=== PATIENT | male | born 1955 | race Caucasian/White ===

== ENCOUNTER 2024-02-06 15:07 | Emergency (ER) | payer MEDICARE ==
[~2024-02-06] VITALS: Wt 93.0 kg
[2024-02-06] MEDS ORDERED: LIPITOR20 MG PO (15:49)
[2024-02-06] MEDS ORDERED: TYLOPHEN500 M2 PO (15:49)
[2024-02-06 16:00] LABS: BASO % 0.5 % (0.0-1.0); EOS # 0.3 10*3/uL (0.0-0.4); EOS % 3.1 % (1.0-4.0); HEMATOCRIT 42.3 % (42.0-52.0); LYMPH # 2.6 10*3/uL (1.3-4.4); LYMPH % 32.8 % (27.0-41.0); MEAN CELL VOLUME 99.3 fl (80.0-94.0); MEAN CORPUSCULAR HGB 32.2 pg (27.0-31.0); MEAN CORPUSCULAR HGB CONC 32.4 g/dl (33.0-37.0); MONO # 0.9 10*3/uL (0.1-1.0); MONO % 11.1 % (3.0-9.0); NEUT # 4.1 10*3/uL (2.3-7.9); PLATELET COUNT AUTOMATED 283 10*3/uL (130-400); RED BLOOD COUNT 4.26 10*6/uL (4.50-5.90); RED CELL DISTRI WIDTH 12.6 % (0-14.5)
[2024-02-06] MEDS ORDERED: BENADRYL ALLERG25 M5 PO (16:20)
[2024-02-06] MEDS ORDERED: DEPAKOTE ER500 MG PO (16:22)
[2024-02-06] MEDS ORDERED: CLARITIN10 MG PO (16:22)
[2024-02-06] MEDS ORDERED: MELATONIN3 MG PO (16:23)
[2024-02-06] MEDS ORDERED: METFORMIN HYD1000 MG PO (16:24)
[2024-02-06] MEDS ORDERED: METOPROLOL SUCC25 M2 PO (16:25)
[2024-02-06] MEDS ORDERED: RIVASTIGMINE TAR6 M1 PO (16:26)
[2024-02-06] MEDS ORDERED: REXULTI2 MG PO (16:26)
[2024-02-06] MEDS ORDERED: VITAMIN B-12250 MCG PO (16:27)
[2024-02-06] MEDS ORDERED: VITAMIN D3125 MCG PO (16:28)
[2024-02-06] MEDS ORDERED: BETASEPT 118 M118 ML T (16:30)
[2024-02-06] MEDS ORDERED: KENALOG 0.1%80 GM T (16:33)
[2024-02-06 16:35] LABS: BUN 13 mg/dl (9-23); CHLORIDE 106 mmol/L (98-107); POTASSIUM 3.9 mmol/L (3.4-5.1)
[2024-02-06 16:41] LABS: ETHYL ALCOHOL < 3.0 mg/dl (<3)
[2024-02-06 16:47] LABS: BILIRUBIN Negative (Negative); BLOOD Negative (Negative); CLARITY Clear (Clear); COLOR Yellow (Yellow); GLUCOSE Negative (Negative); KETONE Trace (Negative); LEUKO ESTERASE Negative (Negative); NITRITE Negative (Negative); SPECIFIC GRAVITY 1.015 (1.001-1.030); UROBILINOGEN 0.2 E.U./dl (0.0-1.0)
[2024-02-06 16:54] LABS: URINE AMPHETAMINES Negative (1000ng/ml); URINE BARBITURATES Negative (200ng/ml); URINE BENZODIAZEPINES Negative (200ng/ml); URINE CANNABINOIDS (THC) Negative (50ng/ml); URINE COCAINE Negative (300ng/ml); URINE METHADONE Negative (300ng/ml); URINE OPIATES Negative (300ng/ml); URINE PHENCYCLIDINE Negative (25ng/ml)
[2024-02-06 16:58] LABS: WBC 0-2 wbc/hpf (0-5)
== END 2024-02-06 17:25 | disposition home or self-care (01) ==
LOC: ED 15:07
PROVIDERS: Emergency Medicine
DX: F03.918 Unspecified dementia, unspecified severity, with other behavioral disturbance (principal); I10 Essential (primary) hypertension; E78.5 Hyperlipidemia, unspecified; F31.9 Bipolar disorder, unspecified; Z20.822 Contact with and (suspected) exposure to COVID-19

== ENCOUNTER 2024-07-09 19:39 | Emergency (ER) | payer MEDICARE ==
[~2024-07-09] VITALS: Ht 187.9 cm; Wt 77.1 kg
[~2024-07-09 19:39] MED LIST: BENADRYL ALLERG25 M5 PO; BETASEPT 118 M118 ML T; CLARITIN10 MG PO; DEPAKOTE ER500 MG PO; KENALOG 0.1%80 GM T; LIPITOR20 MG PO; MELATONIN3 MG PO; METFORMIN HYD1000 MG PO; METOPROLOL SUCC25 M2 PO; PALIPERIDONE ER3 MG PO; REXULTI2 MG PO; RIVASTIGMINE TAR3 M1 PO; RIVASTIGMINE TAR6 M1 PO; TYLOPHEN500 M2 PO; VITAMIN B-12250 MCG PO; VITAMIN D3125 MCG PO
[2024-07-09 20:41] LABS: BASO % 0.5 % (0.0-1.0); EOS # 0.3 10*3/uL (0.0-0.4); EOS % 3.5 % (1.0-4.0); HEMATOCRIT 40.7 % (42.0-52.0); LYMPH # 1.8 10*3/uL (1.3-4.4); LYMPH % 22.8 % (27.0-41.0); MEAN CELL VOLUME 92.9 fl (80.0-94.0); MEAN CORPUSCULAR HGB 31.3 pg (27.0-31.0); MEAN CORPUSCULAR HGB CONC 33.7 g/dl (33.0-37.0); MEAN PLATELET VOLUME 9.7 fl (9.6-12.3); MONO # 0.8 10*3/uL (0.1-1.0); MONO % 10.3 % (3.0-9.0); NEUT # 4.8 10*3/uL (2.3-7.9); NEUT % 62.5 % (47.0-73.0); PLATELET COUNT AUTOMATED 287 10*3/uL (130-400); RED BLOOD COUNT 4.38 10*6/uL (4.50-5.90); RED CELL DISTRI WIDTH 13.2 % (0-14.5); WHITE BLOOD COUNT 7.7 10*3/uL (4.8-10.8)
[2024-07-09 20:58] LABS: BUN 14 mg/dl (9-23); CHLORIDE 105 mmol/L (98-107); POTASSIUM 3.6 mmol/L (3.4-5.1)
[2024-07-09 20:59] LABS: ETHYL ALCOHOL < 3.0 mg/dl (<3)
[2024-07-09 21:09] LABS: BILIRUBIN Negative (Negative); BLOOD Negative (Negative); CLARITY Clear (Clear); COLOR Yellow (Yellow); GLUCOSE Negative (Negative); KETONE Negative (Negative); LEUKO ESTERASE Negative (Negative); NITRITE Negative (Negative); PH 5.5 (4.5-8.0); UROBILINOGEN 0.2 E.U./dl (0.0-1.0)
[2024-07-09 21:16] LABS: URINE AMPHETAMINES Negative (1000ng/ml); URINE BARBITURATES Negative (200ng/ml); URINE BENZODIAZEPINES Negative (200ng/ml); URINE CANNABINOIDS (THC) Negative (50ng/ml); URINE COCAINE Negative (300ng/ml); URINE METHADONE Negative (300ng/ml); URINE OPIATES Negative (300ng/ml); URINE PHENCYCLIDINE Negative (25ng/ml)
[2024-07-09] MEDS ORDERED: LIPITOR20 MG PO (22:38)
[2024-07-09] MEDS ORDERED: B121000 MCG/1 IM (22:39)
[2024-07-09] MEDS ORDERED: CLARITIN10 MG PO (22:39)
[2024-07-09] MEDS ORDERED: METFORMIN HYD1000 MG PO (22:40)
[2024-07-09] MEDS ORDERED: Lopressor25 MG PO (22:40)
[2024-07-09] MEDS ORDERED: RIVASTIGMINE TAR6 M1 PO (22:41)
[2024-07-09] MEDS ORDERED: KENALOG 0.1%80 GM T (22:44)
[2024-07-09] MEDS ORDERED: TRINTELLIX20 MG PO (22:45)
[2024-07-09] MEDS ORDERED: VITAMIN D3125 MC1 PO (22:45)
== END 2024-07-09 23:00 ==
LOC: ED 19:39
PROVIDERS: Physician Assistant Medical
DX: F63.81 Intermittent explosive disorder (principal); Z20.822 Contact with and (suspected) exposure to COVID-19; F03.90 Unspecified dementia, unspecified severity, without behavioral disturbance, psychotic disturbance, mood disturbance, and anxiety; E11.9 Type 2 diabetes mellitus without complications; F31.9 Bipolar disorder, unspecified; E78.5 Hyperlipidemia, unspecified; Z88.8 Allergy status to other drugs, medicaments and biological substances; Z79.899 Other long term (current) drug therapy